=== PATIENT | female | born 1970 | race Hispanic/Latino ===

== ENCOUNTER 2019-02-01 17:48 | Emergency (ER) | payer SELFPAY ==
[2019-02-01] MEDS ORDERED: Bupivacaine 0.5% 10 ML VIAL ONE (19:15)
--- NOTE | 2019-02-01 19:26 | RAD ---
RIGHT ELBOW FIVE VIEWS: 02/01/19 HISTORY: Pain in right elbow. No history of trauma is given. There is no signs of fracture, dislocation or soft tissue swelling. No joint effusion identified. Min imal spurring of the coronoid process of the ulna is noted. IMPRESSION: No acute findings. POS: [facility]
== END 2019-02-01 20:10 | disposition home or self-care (01) ==
LOC: ERS 17:48
DX: M77.01 Medial epicondylitis, right elbow (principal); E11.9 Type 2 diabetes mellitus without complications; Z86.73 Personal history of transient ischemic attack (TIA), and cerebral infarction without residual deficits; Z79.4 Long term (current) use of insulin; Z79.899 Other long term (current) drug therapy; Z79.82 Long term (current) use of aspirin
CPT/HCPCS: 20605; J3490

== ENCOUNTER 2024-01-17 15:56 | Emergency (ER) | payer SELFPAY ==
[2024-01-17 18:57] LABS: #Basophils Less than 0.03 10x3/uL (0.0-0.2); %Basophils 0.3 % (0.0-1.0); %Eosinophils 1.5 % (0.0-10.0); %Lymphocytes 40.3 % (21.0-51.0); %Monocytes 6.6 % (0.0-10.0); %Neutrophils 51.1 % (42.0-75.0); Hematocrit 40.3 % (36.0-47.0); Hemoglobin 13.8 g/dL (12.0-16.0); Mean Corpuscular HGB CONC 34.2 g/dL (32.0-36.0); Mean Corpuscular Hemoglobin 28.6 pg (27.0-31.0); Mean Corpuscular Volume 83.6 fL (78.0-98.0); Mean Platelet Volume 10.9 fL (7.4-10.4); Platelet Count 321 10x3/uL (130-400); Red Blood Cell (RBC) Count 4.82 mill/uL (4.20-5.40)
[2024-01-17] MEDS ORDERED: Metoclopramide HCl 10 MG (2 mL) VIAL ONE ×2 (18:58→19:44)
[2024-01-17] MEDS ORDERED: methylPREDNISolone Sod Succ/PF 125 MG/2 ML VIAL ONE ×2 (18:58→19:44)
[2024-01-17] MEDS ORDERED: Acetaminophen 325 MG TAB ONE ×2 (18:58→19:43)
[2024-01-17] MEDS ORDERED: diphenhydrAMINE 50 MG/ML VIAL ONE ×2 (18:58→19:43)
[2024-01-17 19:18] LABS: ALT (SGPT) 22 U/L (8-55); AST (SGOT) 19 U/L (5-34); Albumin 3.5 g/dL (3.5-5.0); Alkaline Phosphatase 94 U/L (40-110); Anion Gap 16 mmol/L (10-20); BUN (Urea Nitrogen) 14 mg/dL (9.8-20.1); Bilirubin, Total 0.4 mg/dL (0.2-1.2); Calc. Creatinine Clearance 0 mL/min (70-130); Calcium 9.7 mg/dL (7.8-10.44); Carbon Dioxide 24 mmol/L (22-29); Chloride 103 mmol/L (98-107); Estimated GFR 110; Glucose 231 mg/dL (70-105); Potassium 4.1 mmol/L (3.5-5.1); Protein, Total 7.5 g/dL (6.0-8.3); Sodium 139 mmol/L (136-145)
== END 2024-01-17 20:14 | disposition home or self-care (01) ==
LOC: ERS 15:56
DX: R51.9 Headache, unspecified (principal); E11.9 Type 2 diabetes mellitus without complications; Z86.73 Personal history of transient ischemic attack (TIA), and cerebral infarction without residual deficits; Z79.84 Long term (current) use of oral hypoglycemic drugs; Z79.82 Long term (current) use of aspirin; Z79.899 Other long term (current) drug therapy
CPT/HCPCS: 70450; 80053; 85025; 96374; 96375; J1200; J2765; J2919